=== PATIENT | female | born 1990 | race American Indian/Alaskan Native ===

== ENCOUNTER 2019-06-08 23:30 | Emergency (ER) | payer OTHER ==
[2019-06-09 00:24] LABS: Hematocrit 38.7 % (30.3-42.9); Hemoglobin 13.1 gm/dl (10.1-14.3); Mean Corpuscular HGB Conc 34 % (30-34); Mean Corpuscular Volume 92 fl (79-97); Platelet Count 266 K/mm3 (140-440); Red Blood Count 4.22 M/mm3 (3.65-5.03); Red Cell Distribution Width 13.7 % (13.2-15.2)
[2019-06-09 00:47] LABS: Alanine Aminotransferase 105 units/L (7-56); Albumin 4.6 g/dL (3.9-5); BUN/Creatinine Ratio 21; Blood Urea Nitrogen 15 mg/dL (7-17); Calcium 9.5 mg/dL (8.4-10.2); Hemolysis Index 8
[2019-06-09 01:14] LABS: Bilirubin,Urine NEG (Negative); Blood,Urine NEG (Negative); Color,Urine Amber (Yellow); Mucus,Urine 3+ /HPF; Urobilinogen,Urine < 2.0 mg/dL (<2.0)
[2019-06-09 02:39] LABS: Band Neutrophils # (Manual) 0.7 K/mm3; Basophils % (Manual) 0 % (0.0-1.8); Eosinophils % (Manual) 0 % (0.0-4.3); Total Cells Counted 100
[2019-06-09 02:40] LABS: Platelet Estimate Consistent w Auto
--- NOTE | 2019-06-09 04:17 | Ultrasound Report ---
ULTRASOUND ABDOMEN, LIMITED (RIGHT UPPER QUADRANT) INDICATION: ruq pain. COMPARISON: None available. FINDINGS: Pancreas: Not well visualized due to overlying bowel gas. Liver: Normal. Gallbladder: There is somewhat irregular diffuse gallbladder wall thickening. Bile ducts: Normal. Common Bile Duct measures 1 mm. Free fluid: None. Additional Findings: None. IMPRESSION: 1. Diffuse irregular gallbladder wall thickening. No gallstones are seen. Signer Name: Aramis Trejo MD Signed: 06/09/2019 4:13 AM Workstation Name: [id number]
[2019-06-09 06:11] VITALS: BP 111/66
== END 2019-06-09 06:11 | disposition home or self-care (01) ==
LOC: ED 06-09 00:48
DX: M25.512 Pain in left shoulder (principal); R10.9 Unspecified abdominal pain
CPT/HCPCS: 36415; 76705; 80053; 81001; 83690; 84703; 85007; 85025